=== PATIENT | female | born 1980 | race Caucasian/White ===

== ENCOUNTER 2016-10-16 18:40 | Emergency (ER) | payer BC, MEDICAID, OTHER ==
[2016-10-16 19:01] VITALS: TEMP 98; O2SAT 99
[2016-10-16 19:46] LABS: RBC URINE < 1 /hpf (0-3); URINE BILIRUBIN NEGATIVE (NEGATIVE); URINE BLOOD NEGATIVE (NEGATIVE); URINE COLOR Colorless (YELLOW); URINE GLUCOSE (UA) NORMAL (Normal); URINE KETONE NEGATIVE (NEGATIVE); URINE LEUKOCYTE ESTERASE TRACE Leu/uL (Negative); URINE PROTEIN NEGATIVE (NEGATIVE); URINE UROBILINOGEN NORMAL mg/dL (0.2-1.0); WBC URINE 1 /hpf (0-5)
[2016-10-16] MEDS ORDERED: Sodium Chloride 0.9% 1,000 ML IV ONE (20:29)
[2016-10-16] MEDS ORDERED: Sodium Chloride 0.9% 1,000 ML ONE (20:39)
[2016-10-16 20:59] LABS: BASO # 0.1 K/uL (0.0-0.2); BASO % 0.8 % (0.0-2.0); EOS # 0.6 K/uL (0.0-0.7); EOS % 5.6 % (0.0-4.0); LYMPH % 47.9 % (20.0-40.0); MEAN CELL VOLUME 83.9 fL (81.0-99.0); MEAN CORPUSCULAR HEMOGLOBIN 28.4 pg (27.0-31.0); MEAN CORPUSCULAR HGB CONC 33.9 g/dL (33.0-37.0); MEAN PLATELET VOLUME 7.7 fL (7.2-11.7); MONO # 0.6 K/uL (0.0-0.8); MONO % 5.7 % (0.0-10.0); NRBC % 0.1 % (0.0-2.0); RED CELL DISTRIBUTION WIDTH 13.1 % (11.5-14.5); WHITE BLOOD COUNT 10.4 K/uL (4.8-10.8)
[2016-10-16 21:05] LABS: CHLORIDE 100 mmol/L (98-107); POTASSIUM 3.8 mmol/L (3.6-5.2); SODIUM 136 mmol/L (132-148)
[2016-10-16 21:08] LABS: ALB/GLOB RATIO 1.3 (1.0-2.1); ALKALINE PHOSPHATASE 59 U/L (38-126); ALT/SGPT 53 U/L (9-52); AST/SGOT 34 U/L (14-36); BILIRUBIN,TOTAL 0.6 mg/dL (0.2-1.3); BLOOD UREA NITROGEN 10 mg/dL (7-17); CALCIUM 9.1 mg/dl (8.6-10.4); CARBON DIOXIDE 26 mmol/L (22-30); GFR AFRICAN-AMERICAN > 60; GLUCOSE,RANDOM 97 mg/dL (65-105); TOTAL PROTEIN 7.3 g/dL (6.3-8.3)
--- NOTE | 2016-10-16 22:18 | C.PDOC ---
Time Seen by Provider: 10/16/16 20:01 Chief Complaint (Nursing): Female Genitourinary History Per: Patient Onset/Duration Of Symptoms: Days (few) Current Symptoms Are (Timing): Still Present Severity: Moderate Location Of Pain/Discomfort: Suprapubic Radiation Of Pain To:: Back Quality Of Discomfort: "Pain" Associated Symptoms: Back Pain Exacerbating Factors: None Alleviating Factors: None Additional History Per: Prior Records Abnormal Vaginal Bleeding: No Past Medical History Reviewed: Historical Data, Nursing Documentation, Vital Signs Vital Signs: Last Vital Signs Temp 98.0 F 10/16/16 18:47 Pulse 87 10/16/16 18:47 Resp 16 10/16/16 18:47 BP 130/82 10/16/16 18:47 Pulse Ox 99 10/16/16 18:47 - Medical History PMH: Hypothyroidism Surgical History: No Surg Hx Family History: States: Unknown Family Hx - Social History Hx Tobacco Use: No Hx Alcohol Use: No Hx Substance Use: No - Immunization History Hx Tetanus Toxoid Vaccination: No Hx Influenza Vaccination: No Hx Pneumococcal Vaccination: No Review Of Systems Except As Marked, All Systems Reviewed And Found Negative. Constitutional: Negative for: Fever, Weakness Cardiovascular: Negative for: Chest Pain Respiratory: Negative for: Shortness of Breath Gastrointestinal: Negative for: Vomiting, Diarrhea Genitourinary: Positive for: Pelvic Pain, Other (Vaginal itching/burning). Negative for: Vaginal Discharge, Vaginal Bleeding Musculoskeletal: Positive for: Back Pain. Negative for: Neck Pain Skin: Negative for: Rash Neurological: Negative for: Weakness, Numbness, Seizures, Altered Mental Status Physical Exam - Physical Exam Appears: Non-toxic, No Acute Distress Skin: Normal Color, Warm, Dry, No Rash Head: Atraumatic, Normacephalic Eye(s): bilateral: PERRL, EOMI Neck: Normal ROM, Supple Cardiovascular: Rhythm Regular Respiratory: Normal Breath Sounds, No Accessory Muscle Use Gastrointestinal/Abdominal: Soft, Tenderness (mild suprapubic), No Guarding, No Rebound Back: No CVA Tenderness Pelvic: No Vaginal Bleeding, Vaginal Discharge, No Cervical Motion Tenderness, No Adnexal Tenderness Extremity: Normal ROM, No Pedal Edema Neurological/Psych: Oriented x3, Normal Motor, Normal Sensation ED Course And Treatment - Laboratory Results Result Diagrams: 10/16/16 20:52 10/16/16 20:52 Lab Interpretation: No Acute Changes Urine POC: Negative O2 Sat by Pulse Oximetry: 99 Pulse Ox Interpretation: Normal - CT Scan/US Pelvic US Other Rad Studies (CT/US): Read By Radiologist, Radiology Report Reviewed CT/US Interpretation: Enlarged left ovary containing a 5.5x3.6cm complex cystic lesion with internal daughter cyst. 1cm left anterior mid uterine subserosal fibroid. 1cm nabothian cyst in the cervix. Progress - Interventions Interventions:: Observation, Intravenous fluid - Medications Administered Intravenous: NSAID - Data Reviewed Data Reviewed: Lab, Diagnostic imaging, Old records - Patient Status Patient status: Mostly improved - Continuity of Care Discussed patient case with:: Patient, ED Nurse - Patient Plan Patient Plan: Discharge, F/U with PCP, Continue present meds Disposition Counseled Patient/Family Regarding: Studies Performed, Diagnosis, Need For Followup, Rx Given - Disposition Referrals: Tenzin Mccartney [Staff Provider] - Disposition: HOME/ ROUTINE Disposition Time: 22:23 Condition: IMPROVED Additional Instructions: Follow up with a Gyncologist for further evaluation and treatment, including a repeat pelvic ultrasound in 6 weeks. Return to the ER if you develop fever, vomiting, worsening of symptoms or if you have any other concerns. Instructions: Ovarian Cyst (ED) - Clinical Impression Clinical Impression: Complex cyst of left ovary, Uterine fibroid, Nabothian cyst
[2016-10-16 22:49] VITALS: BP 124/79; PULSE 78; RESP 18
--- NOTE | 2016-10-17 09:03 | US ---
Pelvic ultrasound History: Pelvic pain. Comparison: None available. Technique: Real-time sonography was performed through the pelvis utilizing transabdominal and transvaginal techniques. Findings: Uterus: 10.6 x 5 3 x 7.0 centimeters. Heterogeneous echotexture. Anteverted. Small echogenic lesion in the mid anterior uterus measuring 1.0 x 0.7 x 0.9 centimeters suggestive for possible fibroid lesion. Endometrium measures 1.0 centimeters. Small amount of free fluid noted within the posterior pelvic cul-de-sac. Right ovary: 3.6 x 1.7 x 3.5 centimeters. Normal flow. Left ovary: 6.0 x 4.6 x 6.5 centimeters. Normal flow. Heterogeneous septated complex cystic lesion measuring 5.2 x 3.6 x 4.4 centimeters with associated 2.4 x 2.2 centimeter internal daughter cyst. This may represent a complex cyst although a cystic neoplasm cannot be excluded. Urine test is negative. Impression: Enlarged left ovary containing a 5.2 x 3.6 centimeter complex cystic lesion with internal daughter cyst, either a complex cyst or a cystic neoplasm. Follow-up ultrasound and or pelvic MRI is recommended for further evaluation. 1.0 centimeter probable fibroid lesion in the mid anterior uterus. Small amount of free fluid in the posterior pelvic cul-de-sac. These findings were preliminarily reported at 10:02 p.m. on 10/16/[address] Lloyd Stringer from [facility]. .
== END 2016-10-16 22:48 | disposition home or self-care (01) ==
LOC: C.ER 18:40
DX: N83.202 Unspecified ovarian cyst, left side (principal); N88.8 Other specified noninflammatory disorders of cervix uteri; D25.9 Leiomyoma of uterus, unspecified
CPT/HCPCS: 76830; 76856; 80053; 81001; 84703; 85025; 87491; 87591; 96361; 96374; 99284; J1885; J7040

== ENCOUNTER 2017-01-07 11:50 | Day surgery (SDC) | payer BC, OTHER ==
[2017-01-07] MEDS ORDERED: Midazolam 2 MG/2 ML VIAL ONE (13:12)
[2017-01-07] MEDS ORDERED: Propofol 10 mg/ml Inj (20 ML) ONE (13:12)
[2017-01-07] MEDS ORDERED: Rocuronium 10 mg/ml (5 ml) ONE (13:46)
[2017-01-07] MEDS ORDERED: Succinylcholine Chloride 20 mg/ml Syr (5 ml) IV ONE (13:47)
[2017-01-07] MEDS ORDERED: cefOXitin IV 2 gm in Dextrose 2 GM/50 ML BAG IVPB ONE (14:14)
--- NOTE | 2017-01-07 14:45 | CP.SDSHP ---
Same Day Surgery H & P - History Proposed Procedure: Laparascopy with left adnexal cystectomy and all neccessary procedures Pre-Op Diagnosis: Left Ovarian cyst - Previous Medical/Surgical History Previous Surgical History: Hypothyroidism on Levothyroxine 75mcg - Allergies Allergies: Allergies No Known Allergies Allergy (Verified 10/16/16 18:44) - Current Medications Current Medications: Levothyroxine 75mcg - Physical Exam General Appearance: Well Vital Signs: Vital Signs 01/07/17 13:33 Temperature 98.1 F Pulse Rate 79 Respiratory 15 Rate Blood Pressure 109/67 O2 Sat by Pulse 99 Oximetry Mental Status: Alert & Oriented x3 Neuro: WNL Heart: WNL Lungs: WNL GI: WNL - {Optional Preform as Required} Abdomen: WNL Rectal: WNL Integument: WNL JOURNEYMAN SHEET METAL WORKER: WNL Ortho: WNL ENT: WNL Other Pertinent Findings: Multiloculated left ovarian cyst - Impression Impression: Left adnexal cyst Pt. Evaluated Today:Candidate for Anesthesia & Procedure: Yes - Date & Time Date: 01/07/17 Time: 14:45 Short Stay Discharge - Short Stay Discharge Admitting Diagnosis/Reason for Visit: DYSMENORRHEA, UNSPECIFIED Disposition: HOME/ ROUTINE
[2017-01-07] MEDS ORDERED: Lactated Ringer's 1,000 ML IV ONE ×2 (14:47→16:19)
--- NOTE | 2017-01-07 14:48 | PCM.SURG1 ---
Surgeon's Initial Post Op Note - Surgeon's Notes Surgeon: Dr Mccartney Slag Wheeler: Dr Grimes Type of Anesthesia: General Endo Anesthesia Administered By: Dr Hong Pre-Operative Diagnosis: Left Ovarian Cyst( Persistent) Operative Findings: A 5.5X 3.5X3.0cm multilocular Rt ovarian cyst with Rt fallopian tube adhesed to the cyst, Normal sized anteverted uterus. The left ovary and fallopian tube appeared normal. IVFluids- 1100mls. Urine output- 50mls. EBL- 30mls Post-Operative Diagnosis: Same as Preop diagnosis, Operation Performed: Laparoscopic left ovariaan cystectomy Specimen/Specimens Removed: Rt Ovarian cyst wall Estimated Blood Loss: EBL {In ML}: 30 Blood Products Given: N/A Post-Op Condition: Good Date of Surgery/Procedure: 01/07/17 Time of Surgery/Procedure: 15:15
[2017-01-07] MEDS ORDERED: Bupivacaine HCl 0.5% PF (10 ml) Inj ONE (14:55)
[2017-01-07] MEDS ORDERED: Morphine 4 MG/ML VIAL ONE (16:02)
[2017-01-07] MEDS ORDERED: Neostigmine Methylsulfate 3mg/3ml Syringe IV ONE (17:04)
[2017-01-07] MEDS ORDERED: HYDROmorphone 0.5 mg/0.5 ml ISec IVP PRN (17:11)
[2017-01-07 19:10] VITALS: PULSE 80; RESP 13; TEMP 98
[2017-01-07 21:37] VITALS: BP 111/62; O2SAT 97
--- NOTE | 2017-01-09 22:55 | OP ---
PROCEDURE DATE: 01/07/2017 PREOPERATIVE DIAGNOSIS: A 36-year-old female with a persistent left ovarian cyst. POSTOPERATIVE DIAGNOSIS: A 36-year-old female with a persistent left ovarian cyst. PROCEDURE: Laparoscopic left ovarian cystectomy performed on 01/07/2017. SURGEON: Tenzin Mccartney MD. LEATHER CARTRIDGE BELT MAKER: Garnt Grimes MD. Assistance for this procedure was needed for exposure of tissues and help in the conduct of surgery. Spent Grain Dryer remained with the procedure throughout its entire length. TYPE OF ANESTHESIA: General endotracheal. ANESTHESIA ADMINISTERED BY: Dr. Hong FINDINGS: A 5.5 x 3.5 x 3.0 multilocular left ovarian cyst with a left ovarian tube adhesed to the medial side. The right ovary and the right fallopian tube appeared normal. The uterus was normal sized and anteverted. IV FLUID INTAKE: About 1100 mL URINE OUTPUT: 50 mL ESTIMATED BLOOD LOSS: 30 mL COMPLICATIONS: There were no complications. SPECIMENS SENT: The left ovarian cyst. DESCRIPTION OF PROCEDURE: After obtaining informed consent, the patient was sent to the OR with IV running. The patient was placed in the supine position on the OR table and after adequate general anesthesia was replaced in a dorsal lithotomy position. The patient was then prepped and draped in the sterile fashion. The posterior wall of the vagina was depressed using a weighted speculum and the anterior wall was elevated with an L-shaped retractor to expose the cervix, which was held with a single tooth tenaculum. The cervical canal was dilated to about 8 mm dilatation. A HUMI uterine manipulator was then introduced into the uterine cavity and then secured in place with an air balloon. The urinary bladder was drained using a straight catheter with output of about 50 mL of clear urine. Attention was then turned to the anterior abdominal wall where a 5 mm incision was made using a scalpel into the mid portion of the umbilicus. This incision was opened with a Odette clamp and then a Veress needle was introduced into the abdominal cavity. This was connected to carbon dioxide gas, which was flowed to a pressure of about 50 mmHg. Using a 5 mm trochar sleeve, an incision was made in the umbilicus. A trocar again was introduced into the abdominal cavity and a laparoscope introduced after assuring intraabdominal placement. These findings were noted when the laparoscopic was introduced. Two additional ports were placed on the anterior abdominal wall. Using a 5 mm trocar and sleeve on the left lower quadrant and a 10 mm port in the right lower quadrant. Using a 5 mm ligasure device, the left ovarian cyst was identified and carefully dissected with the LigaSure device and this ovarian cyst was carefully removed from its attachments to the ovary and fallopian tube on the left side. After removing the cyst the specimen taken was taken out through the 10 mm port and this was sent for histopathology. Hemostasis at the operative area was archived using a Bovie device provided laparoscopically. The pelvis was irrigated profusely with normal saline after the procedure. Once hemostasis was assured, the instruments were taken out from their ports and the carbon dioxide gas let out of the abdominal cavity. The HuMI uterine manupulator was also removed. The 10 mm port was closed using Vicryl #2-0 and the two 5 mm ports were closed by using Vicryl #3-0. All counts of instruments and gauze used were correct x3. Patient was sent to the recovery room awake and in stable condition. Tenzin Mccartney MD [facility]
== END 2017-01-07 21:15 | disposition home or self-care (01) ==
LOC: C.SDS 11:50
PROVIDERS: ATTEND Obstetrics & Gynecology
DX: D27.1 Benign neoplasm of left ovary (principal); N94.6 Dysmenorrhea, unspecified
CPT/HCPCS: 58662; 88305; J0694; J1100; J1170; J1885; J2001; J2250; J2270; J2405; J2704; J2710; J3010; J7120

== ENCOUNTER 2018-09-24 18:27 | Emergency (ER) | payer BC ==
[2018-09-24 18:54] VITALS: RESP 20; TEMP 99.7
--- NOTE | 2018-09-24 19:44 | C.PDOC ---
History Of Present Illness 37 year old female woke up with irritated eye and redness on the lateral right conjunctiva. Patient has been with allergy symptoms for the past few days, has been using OTC medication that she jennifer from [email or web address], is unsure what medication exactly. 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 Patient report having a little chest pain intermittently for a long time at the left precordium not associated with anything but today she thought it might have been related to her blood pressure. She checked her blood pressure at home and noticed it was 190 systolic, here in the ER it was 130-40/90. Denies any chest pain at this time. Time Seen by Provider: 09/24/18 19:29 Chief Complaint (Nursing): Chest Pain History Per: Patient History/Exam Limitations: no limitations Onset/Duration Of Symptoms: Hrs, Intermittent Episodes Current Symptoms Are (Timing): Gone Exacerbating Factors: None Alleviating Factors: None Recent travel outside of the [place]: No Past Medical History Reviewed: Historical Data, Nursing Documentation, Vital Signs Vital Signs: Last Vital Signs Temp 99.7 F H 09/24/18 18:51 Pulse 91 H 09/24/18 18:51 Resp 20 09/24/18 18:51 BP 148/85 09/24/18 18:51 Pulse Ox 98 09/24/18 18:51 Primary Care Provider: Fantasma Wong - Medical History PMH: Hypothyroidism Family History: States: Unknown Family Hx - Social History Hx Tobacco Use: No Hx Alcohol Use: No Hx Substance Use: No - Immunization History Hx Tetanus Toxoid Vaccination: No Hx Influenza Vaccination: No Hx Pneumococcal Vaccination: No Review Of Systems Constitutional: Negative for: Fever, Chills Cardiovascular: Negative for: Chest Pain, Palpitations Respiratory: Negative for: Cough, Shortness of Breath Gastrointestinal: Negative for: Nausea, Vomiting Neurological: Negative for: Weakness, Numbness Physical Exam - Physical Exam Appears: Non-toxic Skin: Normal Color, Warm, Dry Head: Atraumatic, Normacephalic Eye(s): bilateral: PERRL, EOMI, right: Other (Small conjunctival hemorrhage), left: Normal Inspection Oral Mucosa: Moist Neck: Normal, Supple Chest: Symmetrical, No Tenderness Cardiovascular: Rhythm Regular Respiratory: Normal Breath Sounds, No Rales, No Rhonchi, No Wheezing Gastrointestinal/Abdominal: Soft, No Tenderness Neurological/Psych: Oriented x3, Normal Speech ED Course And Treatment ECG: Interpreted By Me, Viewed By Me ECG Rhythm: Sinus Tachycardia ECG Interpretation: No Acute Changes Interpretation Of ECG: Poor r wave progression in v3 Rate From EC O2 Sat by Pulse Oximetry: 98 (Room air) Pulse Ox Interpretation: Normal Progress Note: Patient offered cardiac work up but refuses, states she has been feeling this chest pain for many years and it is unchanged. Advised patient to stop using her blood pressure machine until calibrated and follow up with primary tomorrow. Disposition Counseled Patient/Family Regarding: Diagnosis, Need For Followup - Disposition Referrals: Fantasma Wong MD [Staff Provider] - Disposition: HOME/ ROUTINE Disposition Time: 19:43 Condition: STABLE Instructions: High Blood Pressure in Adults, Subconjunctival Hemorrhage Forms: [employer] (Sinhala) - Clinical Impression Clinical Impression: Subconjunctival hemorrhage of right eye, Elevated blood pressure reading - Scribe Statement The provider has reviewed the documentation as recorded by the Scribe Wilson Rose All medical record entries made by the Scribe were at my direction and personally dictated by me. I have reviewed the chart and agree that the record accurately reflects my personal performance of the history, physical exam, medical decision making, and the department course for this patient. I have also personally directed, reviewed, and agree with the discharge instructions and disposition.
[2018-09-24 19:59] VITALS: BP 132/92; PULSE 94
[2018-09-24 20:01] VITALS: O2SAT 98
--- NOTE | 2018-09-25 11:14 | CARD ---
APPROVED REPORT Date of service: 09/24/2018 EKG Measurement Heart [id number] <Conclusion> Sinus tachycardia Possible Left atrial enlargement Cannot rule out Anterior infarct, age undetermined Abnormal ECG
== END 2018-09-24 20:00 | disposition home or self-care (01) ==
LOC: C.ER 18:27
DX: H11.31 Conjunctival hemorrhage, right eye (principal); R03.0 Elevated blood-pressure reading, without diagnosis of hypertension